=== PATIENT | female | born 1985 | race African-American/Black ===

== ENCOUNTER 2022-10-29 19:17 | Inpatient (IN) | payer OTHER ==
[2022-10-29] MEDS ORDERED: Misoprostol 200 MCG TAB ONE (21:24)
[2022-10-29 21:35] VITALS: BMI 37.8
[2022-10-29] MEDS ORDERED: Acetaminophen 500 MG TAB PO PRN (21:36)
[2022-10-29] MEDS ORDERED: fentaNYL 50 mcg/mL 1 mL Vial SLOW IVP PRN (21:36)
[2022-10-29] MEDS ORDERED: hydrALAZINE 20 MG/ML VIAL SLOW IVP PRN (21:36)
[2022-10-29] MEDS ORDERED: Ondansetron PF 4 MG/2 ML Vial IVP PRN (21:36)
[2022-10-29] MEDS ORDERED: Misoprostol 200 MCG TAB PR PRN (21:36)
[2022-10-29] MEDS ORDERED: Promethazine HCl 25 MG/ML VIAL IM PRN (21:36)
[2022-10-29] MEDS ORDERED: Tranexamic Acid 1,000 MG/10 ML VIAL IVP PRN (21:46)
[2022-10-29] MEDS ORDERED: Carboprost 250 MCG/ML AMP IM PRN (21:46)
[2022-10-29] MEDS ORDERED: Misoprostol 200 MCG TAB PR SCH (21:46)
[2022-10-29] MEDS ORDERED: Misoprostol 200 MCG TAB VAG PRN (21:46)
[2022-10-29] MEDS ORDERED: Diphenoxylate HCl/Atropine Tablet PO PRN (21:49)
[2022-10-29] MEDS ORDERED: Labetalol HCl 100 MG/20 ML VIAL SLOW IVP PRN ×2 (21:51)
[2022-10-29] MEDS ORDERED: NS w/ Oxytocin 30 units 500 ML IV SCH (22:00)
[2022-10-29] MEDS ORDERED: Lactated Ringer's 1,000 ML IV SCH ×2 (22:00)
[2022-10-29] MEDS: Ampicillin 2 GM in Sodium Chloride 0.9% 100 ML IVPB SCH (22:40)
[2022-10-29 22:53] LABS: Mean Corpuscular Hemoglobin 27.1 pg (27.0-33.0); Mean Corpuscular Volume 79.8 fl (81.6-98.3); Mean Platelet Volume 10.6 fl (7.4-10.4); Platelet Count 197 10x3/uL (150-450); RBC Distribution Width 15.6 % (11.5-14.5); Red Blood Cell (RBC) Count 3.32 10x6/uL (3.90-5.03); White Blood Cell (WBC) Count 18.2 10x3/uL (3.5-10.5)
[2022-10-29 23:37] LABS: HBSAg Index 0.23 S/CO (0-0.99); Hep B Surf Ag - L&D Non-Reactive S/CO (NonReactive)
[2022-10-29] MEDS ORDERED: Morphine 4 MG/ML VIAL ONE (23:51)
[2022-10-29] MEDS ORDERED: Succinylcholine 200 MG/10 ml SYRINGE FS ONE (23:59)
[2022-10-29] MEDS ORDERED: Rocuronium Bromide 10 MG/ML (10ML VIAL) ONE (23:59)
[2022-10-30] MEDS ORDERED: PROPOFOL 20 ML ONE
[2022-10-30] MEDS ORDERED: Fentanyl 250 MCG/5 ML VIAL ONE (00:01)
[2022-10-30] MEDS ORDERED: Methylergonovine 0.2 MG/ML VIAL ONE (00:04)
[2022-10-30] MEDS ORDERED: Misoprostol 200 MCG TAB ONE (00:04)
[2022-10-30] MEDS ORDERED: Ketamine 50 MG/ML (10ML VIAL) ONE (00:32)
[2022-10-30] MEDS ORDERED: Oxytocin 10 UNITS/ML VIAL ONE ×3 (00:43→00:46)
[2022-10-30 00:56] LABS: Syphilis Antibody Nonreactive (Nonreactive); Syphilis Antibody Index 0.04 S/CO (<1.00 Non-Reactive)
[2022-10-30] MEDS ORDERED: Ondansetron PF 4 MG/2 ML Vial ONE (01:00)
[2022-10-30] MEDS ORDERED: Ibuprofen 800 MG TAB PO PRN (01:14)
[2022-10-30] MEDS: Clindamycin/D5W 900 MG in Premix Bag 1 BAG IVPB SCH ×3 (02:14→18:06)
[2022-10-30 02:57] VITALS: TEMP 98
[2022-10-30] MEDS: Ampicillin 2 GM in Sodium Chloride 0.9% 100 ML IVPB SCH ×3 (05:02→16:39)
[2022-10-30] MEDS ORDERED: NIFEdipine XL 90 MG TAB PO SCH (09:00)
[2022-10-30 11:27] VITALS: BP 128/71
[2022-10-30 11:35] LABS: Hemoglobin 8.6 g/dL (12.0-15.5); Mean Corpuscular HGB CONC 34.7 g/dL (32.0-36.0); Mean Corpuscular Volume 80.8 fl (81.6-98.3); Mean Platelet Volume 10.5 fl (7.4-10.4); Platelet Count 200 10x3/uL (150-450); RBC Distribution Width 15.6 % (11.5-14.5); Red Blood Cell (RBC) Count 3.07 10x6/uL (3.90-5.03); White Blood Cell (WBC) Count 28.7 10x3/uL (3.5-10.5)
[2022-10-30] MEDS ORDERED: ADMIXTURE FEE IVPB SCH (18:30)
[2022-10-30] MEDS ORDERED: GENTAMICIN IVPB SCH (18:30)
[2022-10-30] MEDS ORDERED: SODIUM CHLORIDE IVPB SCH (18:30)
== END 2022-10-31 08:40 | disposition home or self-care (01) | DRG 770 ==
LOC: CSHLD 20:50 → OBSVTOIN 21:37 → CSHLD 10-30 06:25
PROVIDERS: ADMIT Obstetrics & Gynecology; ATTEND Obstetrics & Gynecology
PROC: 10D17ZZ Extraction of Products of Conception, Retained, Via Natural or Artificial Opening (ICD-10-PCS; principal; 2022-10-30)
PROC: 30233N1 Transfusion of Nonautologous Red Blood Cells into Peripheral Vein, Percutaneous Approach (ICD-10-PCS; 2022-10-30)
PROC: 3E033VJ Introduction of Other Hormone into Peripheral Vein, Percutaneous Approach (ICD-10-PCS; 2022-10-30)
DX: O03.1 Delayed or excessive hemorrhage following incomplete spontaneous abortion (principal); D62 Acute posthemorrhagic anemia; O90.81 Anemia of the puerperium; O03.0 Genital tract and pelvic infection following incomplete spontaneous abortion; O10.93 Unspecified pre-existing hypertension complicating the puerperium; Z79.899 Other long term (current) drug therapy
CPT/HCPCS: 36415; 36430; 85027; 86780; 86850; 86900; 86901; 87340; 88305; J0290; J1580; J2210; J2270; J2405; J2590; J2704; J3010; J3490; J7120; P9016